=== PATIENT | female | born 1980 | race Caucasian/White ===

== ENCOUNTER 2023-09-12 13:43 | Outpatient (RCR) | payer MEDICAID, SELFPAY | END 2023-09-24 23:59 | disposition home or self-care (01) | LOC: CPTX 13:43 | PROVIDERS: PCP Chiropractor; Referring Provider Chiropractor; Visit Provider Chiropractor | DX: Z53.9 Procedure and treatment not carried out, unspecified reason (principal) ==

== ENCOUNTER 2024-12-02 09:24 | Outpatient (AMB) | payer MEDICAID, SELFPAY ==
--- NOTE | 2024-12-02 09:25 | AMB.GYNCLNOT ---
Vital Signs 12/02/24 09:31 Weight 65.374 kg Weight Measurement Method Standing Scale BP 134/89 H Blood Pressure Source Automatic Cuff Blood Pressure Location Left Upper Arm Position Sitting Respiration 14 Pulse 71 Pulse Source Monitor Temp 97.8 F Temp Source Oral Pulse Oximetry (%) 99 Oxygen Delivery Method Room Air Allergies/Home Meds Allergies & Medications Allergies albuterol Allergy (Severe, Verified 12/02/24 09:33) HEART RACES AND BLACKS OUT cefprozil Allergy (Severe, Verified 12/02/24 09:33) DEFLIN ADARSH SYNDROME cetirizine Allergy (Severe, Verified 12/02/24 09:33) THROAT CLOSES epinephrine Allergy (Severe, Verified 12/02/24 09:33) HYPOTENSION erythromycin base Allergy (Severe, Verified 12/02/24 09:33) SZ ibuprofen Allergy (Severe, Verified 12/02/24 09:33) RASH AND ITCHING ALL OVER. lidocaine Allergy (Severe, Verified 12/02/24 09:33) HYPOTENSION morphine Allergy (Severe, Verified 12/02/24 09:33) SHAKY, BLURRED VISION Sulfa (Sulfonamide Antibiotics) Allergy (Severe, Verified 12/02/24 09:33) SZ triamcinolone (From Kenalog) Allergy (Severe, Verified 12/02/24 09:33) throat closing ct contrast Allergy (Intermediate, Uncoded 12/02/24 09:33) Nausea Medication Reconciliation albuterol sulfate 90 mcg/actuation aerosol inhaler (Ventolin HFA) 2 puff inhalation PRN PRN Cough 12/29/18 [History Confirmed 12/02/24] fluticasone propionate 110 mcg/actuation HFA aerosol inhaler 1 puff inhalation BID 03/08/23 [History Confirmed 12/02/24] fluticasone propionate 50 mcg/actuation nasal spray,suspension 2 spray intranasal DAILY 03/08/23 [History Confirmed 12/02/24] loratadine 10 mg tablet 10 mg PO DAILY 03/08/23 [History Confirmed 12/02/24] pseudoephedrine HCl 30 mg tablet (Sudogest) 30 mg PO DAILY PRN Sinus Symptoms 03/08/23 [History Confirmed 12/02/24] Intake Visit Data Collection New Patient or Established: Established Patient (seen at [facility] within 3 years) Reason for Visit:: Irregular menstrual bleeding, pelvic pain, pain during sex, right ovarian pain, and liver/abdominal pain. 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 1. Little interest or pleasure in doing things: not at all 2. Feeling down, depressed, or hopeless: not at all Total score: 0 PHQ-9 3. Trouble falling or staying asleep, or sleeping too much: Not at all 4. Feeling tired or having little energy: Not at all 5. Poor appetite or overeating: Not at all 6. Feeling bad about yourself - or that you are a failure or have let yourself or your family down: Not at all 7. Trouble concentrating on things, such as reading the newspaper or watching television: Not at all 8. Moving or speaking so slowly that other people could have noticed? - Or the opposite - being so fidgety or restless that you have been moving around a lot more than usual: not at all 9. Thoughts that you would be better off or of hurting yourself in some way: Not at all Total score: 0 Source: Developed by Drs. Ismael Duke, Moraima Espinoza, Abundio Keating and colleagues, with an educational sumit from [employer]. Depression screen completed yes Social History Living Situation History Lives With: Family Housing: House Tobacco History Smoking Status: Never smoker Second Hand Smoke Exposure: Yes Alcohol History Alcohol Intake: Current Alcohol Intake Frequency: A Few Times a Week Last Drank: Days (ago) Domestic Abuse History Do You Feel Safe at Home: Yes Past Medical History Past Medical History Have you ever been diagnosed with any of the following: Neurological Problems Cerebrovascular Accident (CVA): No Transient Ischemic Attacks (TIA): No Dementia: No Alzheimer's Disease: No Parkinson's Disease: No Brain Tumor: Yes (16 mm mass) Seizures: No Migraine: Yes Cardiology Problems Congestive Heart Failure: No Hypertension: No Respiratory Problems Chronic Obstructive Pulmonary Disease (COPD): No Asthma: Yes Bronchitis: Yes Stomache/Intestinal Problems Colorectal Cancer: No Hiatal Hernia: Yes Gastroesophageal Reflux Disease: Yes Genital/Urinary Problems Renal Disease: No Reproductive Problems Breast Cancer: No Endometriosis: Yes Musculoskeletal Problems Arthritis: Yes (both hips) Osteoporosis: Yes (early onset) Degenerative Disk Disease: Yes Scoliosis: Yes Fibromyalgia: Yes Endocrine Problems Diabetes Mellitus Type 1: No Diabetes Mellitus Type 2: No Blood Problems Anemia: No Leukemia: No Psychologic Problems Anxiety: Yes Other Problems Blood Transfusions: No Blood Transfusion Reaction: No Anesthesia Reactions: No Chemotherapy: No Chicken Pox: Yes Measles: No Mumps: No Rubella ([place] Measles): No Cancer: Yes Cervical Cancer: No Lung Cancer: No Ovarian Cancer: No History of Present Illness HPI Narrative The patient presents with irregular menstrual bleeding for several months. She reports experiencing spotting almost every week or every other week, with varying characteristics including brown or red discharge, and occasionally mucoid discharge with small clots. The bleeding episodes are inconsistent, lasting for a few days before stopping and then recurring. The patient also complains of pain, particularly in the right ovary, which she describes as a stabbing sensation. She experiences pain sometimes after sexual intercourse and occasionally during intercourse. The onset of these symptoms dates back to approximately a year and a half ago, following a surgical procedure in February 2023. The patient also mentions a history of liver hemangioma and gallbladder sludging, for which she has previously consulted specialists. She reports symptoms of fullness and nausea related to these conditions. Additionally, the patient has a history of spinal issues, including scoliosis, spondylolisthesis, and stenosis, with previous recommendations for spinal surgery due to multiple [id number] areas and bulging discs. Review of Systems Review of Systems Systems Reviewed: All systems reviewed, normal except as documented Exam General Limitations: no limitations General Appearance: alert, in no apparent distress, comfortable, cooperative, healthy appearing, well developed and well groomed Head Head exam: atraumatic, normocephalic and normal inspection Neck Neck exam: Present normal inspection, full ROM and trachea midline Chest Chest inspection: Present normal inspection and symmetric chest wall rise Abdominal Abdominal exam: Present soft and normal bowel sounds Extremities Extremities exam: Present normal inspection and full ROM Back Back exam: Present normal inspection and full ROM Psych Psychiatric exam: Present normal affect and normal mood Skin Skin exam: Present warm, dry, intact and normal color Assessment & Plan Diagnosis / Problem List (1) Abnormal uterine and vaginal bleeding, unspecified: Status: Acute Plan: Patient presents with irregular menstrual bleeding for several months, characterized by frequent spotting (every week or every other week), varying in color (brown to red) and consistency (mucoid with occasional clots). The bleeding pattern is inconsistent and unpredictable. Given the patient's age and symptoms, perimenopausal changes are being considered. Family history is non-contributory as female relatives had hysterectomies. The clinician is also considering the possibility of post-surgical complications, as the patient had a procedure approximately 1.5 years ago in February 2023. - Hormone panel to check for menopausal changes - Pelvic ultrasound to evaluate uterine and ovarian structures - Follow-up appointment scheduled for December 16 at 9:30 AM to review results and discuss further management Right Ovarian Pain Patient reports right-sided ovarian pain, described as stabbing in nature. The pain is sometimes exacerbated during or after sexual intercourse. This symptom is occurring in conjunction with the abnormal uterine bleeding, suggesting a possible gynecological etiology. - Pelvic ultrasound (as mentioned above) to evaluate ovarian structures - Results to be discussed at the follow-up appointment (2) Spondylolisthesis: Status: Acute Plan: Patient has a history of significant spinal problems, including multiple [id number] areas, bulging discs, and a disc impinging on the spinal canal. Previous referral for spinal surgery was unsuccessful due to changes in provider contracts. The condition is causing mobility issues, as evidenced by the patient's previous use of a walking stick. 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 The patient's complex presentation with irregular bleeding patterns, pelvic pain, and possible early menopause symptoms necessitates a comprehensive evaluation. Given the patient's history of poor tolerance to hormones, the clinician is hesitant to initiate progesterone therapy. The differential diagnosis includes perimenopause, structural uterine abnormalities, and potential complications from the previous surgery. A hormone panel is ordered to assess for menopausal changes, and a pelvic ultrasound is planned to evaluate for any anatomical causes of the symptoms and to compare with previous imaging. The clinician also considers the patient's reported liver hemangioma and recent upper abdominal pain as potential confounding factors in the presentation. The complexity of the case is increased by the patient's multiple comorbidities, including a history of brain tumor and spinal issues, which require separate follow-up and management. Additional Assessment Preventive Medicine: Patient Counseling: Sexual Health, Contraception, and Family Planning Your sexual and reproductive health is important, and there are several steps you can take to protect yourself and make informed decisions. Safe Sex and STD Prevention: ? Condom Use: Consistent use of condoms during vaginal, anal, and oral sex reduces the risk of sexually transmitted diseases (STDs), including HIV. ? Regular Testing: Routine STD testing is important, especially if you or your partner have multiple partners. Early detection helps prevent complications. ? Open Communication: Discuss your sexual health and testing history with your partner(s) to make safer choices together. Contraceptive Options: ? Barrier Methods: Condoms (male and female) provide protection against both and STDs. ? Hormonal Methods: control pills, patches, vaginal rings, injections, and implants prevent when used consistently and correctly. ? Long-Acting Reversible Contraception (LARC): IUDs (hormonal and non-hormonal) and implants provide long-term, highly effective protection. ? Permanent Contraception: Options like tubal ligation or vasectomy are available for those who do not wish to have more children. Emergency Contraception (EC): ? Emergency contraception (e.g., Plan B or Chen) can be used after unprotected sex or contraceptive failure and is most effective when taken within 72 hours (up to 5 days for some options). ? EC does not protect against STDs, so follow up with testing if exposure is a concern. Family Planning and Pre- Health: ? If you are planning to become , begin taking folic acid 1 mg daily to reduce the risk of neural tube defects. ? Avoid teratogenic drugs (medications that can harm a developing baby) and discuss any prescription medications with your healthcare provider before . ? It is recommended to space pregnancies at least 18 months apart to support your health and reduce -related risks. Additional Plan Follow Up: 2 Weeks Office Procedures OB Clinic LOC & Office Proc's Nursing/Assessment Patient Status: Established Patient OB Clinic Nursing Assessment: Medication Reconciliation, Update PMH in EMR and Vital Signs OB Clinic Coordination of Care: Complex Care and Chronic Disease 1-5, Consent,records obtained, informed consent, Education Simp Pt/Fam, Lab and Imaging orders and Staff clarify orders Established Patient Charge Established Patient Point Assignment: 100 Established Patient Point Charge: EP Level 3 (80-115)
[2024-12-02 09:31] VITALS: BP 134/89; PULSE 71; RESP 14; TEMP 36.6; O2SAT 99
== END 2024-12-02 09:57 | disposition home or self-care (01) ==
LOC: HODSOBC 09:24
PROVIDERS: PCP Physician Assistant Medical; Referring Provider Physician Assistant Medical; Supervising Provider Obstetrics & Gynecology; Visit Provider Obstetrics & Gynecology
DX: N93.8 Other specified abnormal uterine and vaginal bleeding (principal); D18.03 Hemangioma of intra-abdominal structures
CPT/HCPCS: 99213; G0463

== ENCOUNTER → 2024-12-12 | Outpatient (CLI) | payer MEDICAID, SELFPAY ==
--- NOTE | 2024-12-12 16:30 | XR_ITS ---
Examination: Pelvic ultrasound, transabdominal, complete Technique: Transabdominal ultrasound of the pelvis performed using grayscale imaging Date and time of exam: December 12, 2024 1634 hours INDICATIONS: Onset of pelvic pain beginning 4 months ago. FINDINGS: Uterus 8.3 cm endometrial stripe 0.4 cm, no uterine mass Right ovary 2.9 cm arterial flow 22 mm 13 mm follicular cysts Duct ovary 3.4 cm arterial flow IMPRESSION: No uterine mass Small right ovarian follicular cysts
== END | disposition home or self-care (01) ==
LOC: CDIM 16:11
PROVIDERS: PCP Physician Assistant Medical; Referring Provider Obstetrics & Gynecology; Visit Provider Obstetrics & Gynecology
DX: N83.01 Follicular cyst of right ovary (principal)
CPT/HCPCS: 76856

== ENCOUNTER 2024-12-16 09:27 | Outpatient (AMB) | payer MEDICAID, SELFPAY ==
[2024-12-16 09:38] VITALS: BP 100/64; PULSE 64; RESP 14; TEMP 36.8; O2SAT 97
--- NOTE | 2024-12-16 09:38 | GYNCLNT_ITS ---
Vital Signs 12/16/24 09:38 Weight 66.224 kg Weight Measurement Method Standing Scale BP 100/64 Blood Pressure Source Automatic Cuff Blood Pressure Location Left Upper Arm Position Sitting Respiration 14 Pulse 64 Pulse Source Monitor Temp 98.2 F Temp Source Oral Pulse Oximetry (%) 97 Oxygen Delivery Method Room Air Allergies/Home Meds Allergies & Medications Allergies albuterol Allergy (Severe, Verified 12/16/24 09:41) HEART RACES AND BLACKS OUT cefprozil Allergy (Severe, Verified 12/16/24 09:41) DELFIN ADARSH SYNDROME cetirizine Allergy (Severe, Verified 12/16/24 09:41) THROAT CLOSES epinephrine Allergy (Severe, Verified 12/16/24 09:41) HYPOTENSION erythromycin base Allergy (Severe, Verified 12/16/24 09:41) SZ ibuprofen Allergy (Severe, Verified 12/16/24 09:41) RASH AND ITCHING ALL OVER. lidocaine Allergy (Severe, Verified 12/16/24 09:41) HYPOTENSION morphine Allergy (Severe, Verified 12/16/24 09:41) SHAKY, BLURRED VISION Sulfa (Sulfonamide Antibiotics) Allergy (Severe, Verified 12/16/24 09:41) SZ triamcinolone (From Kenalog) Allergy (Severe, Verified 12/16/24 09:41) throat closing ct contrast Allergy (Intermediate, Uncoded 12/16/24 09:41) Nausea Medication Reconciliation albuterol sulfate 90 mcg/actuation aerosol inhaler (Ventolin HFA) 2 puff inhalation PRN PRN Cough 12/29/18 [History Confirmed 12/16/24] fluticasone propionate 110 mcg/actuation HFA aerosol inhaler 1 puff inhalation BID 03/08/23 [History Confirmed 12/16/24] fluticasone propionate 50 mcg/actuation nasal spray,suspension 2 spray intranasal DAILY 03/08/23 [History Confirmed 12/16/24] loratadine 10 mg tablet 10 mg PO DAILY 03/08/23 [History Confirmed 12/16/24] pseudoephedrine HCl 30 mg tablet (Sudogest) 30 mg PO DAILY PRN Sinus Symptoms 03/08/23 [History Confirmed 12/16/24] Intake Visit Data Collection New Patient or Established: Established Patient (seen at [facility] within 3 years) Reason for Visit:: DISCUSS LABS AND ULTRASOUND RESULTS Seen by Clinical Staff ONLY (RN/MA): No Chemical Sales Representative Required: No Do You Feel Safe at Home: Yes Authorities Contacted: N/A PCP or OBGYN visit in last 3 months: Yes Date of Last PCP or OBGYN visit: 12/02/24 Hx Now: No Are you currently on any form of Control: No Pain Present Currently: No Pain Scale Used: Dang-Varma/Numerical Pain scale:: 0 Smoking Status Smoking Status: Never smoker 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 1. Little interest or pleasure in doing things: not at all 2. Feeling down, depressed, or hopeless: not at all Total score: 0 PHQ-9 3. Trouble falling or staying asleep, or sleeping too much: Not at all 4. Feeling tired or having little energy: Not at all 5. Poor appetite or overeating: Not at all 6. Feeling bad about yourself - or that you are a failure or have let yourself or your family down: Not at all 7. Trouble concentrating on things, such as reading the newspaper or watching television: Not at all 8. Moving or speaking so slowly that other people could have noticed? - Or the opposite - being so fidgety or restless that you have been moving around a lot more than usual: not at all 9. Thoughts that you would be better off or of hurting yourself in some way: Not at all Total score: 0 Source: Developed by Drs. Ismael Duke, Moraima Espinoza, Abundio Keating and colleagues, with an educational sumit from [employer]. Depression screen completed yes Social History Living Situation History Lives With: Family Housing: House Tobacco History Smoking Status: Never smoker Second Hand Smoke Exposure: Yes Alcohol History Alcohol Intake: Current Alcohol Intake Frequency: A Few Times a Week Domestic Abuse History Do You Feel Safe at Home: Yes Past Medical History Past Medical History Have you ever been diagnosed with any of the following: Neurological Problems Cerebrovascular Accident (CVA): No Transient Ischemic Attacks (TIA): No Dementia: No Alzheimer's Disease: No Parkinson's Disease: No Brain Tumor: Yes (16 mm mass) Seizures: No Migraine: Yes Cardiology Problems Congestive Heart Failure: No Hypertension: No Respiratory Problems Chronic Obstructive Pulmonary Disease (COPD): No Asthma: Yes Bronchitis: Yes Stomache/Intestinal Problems Colorectal Cancer: No Hiatal Hernia: Yes Gastroesophageal Reflux Disease: Yes Genital/Urinary Problems Renal Disease: No Reproductive Problems Breast Cancer: No Endometriosis: Yes Musculoskeletal Problems Arthritis: Yes (both hips) Osteoporosis: Yes (early onset) Degenerative Disk Disease: Yes Scoliosis: Yes Fibromyalgia: Yes Endocrine Problems Diabetes Mellitus Type 1: No Diabetes Mellitus Type 2: No Blood Problems Anemia: No Leukemia: No Psychologic Problems Anxiety: Yes Other Problems Blood Transfusions: No Blood Transfusion Reaction: No Anesthesia Reactions: No Chemotherapy: No Chicken Pox: Yes Measles: No Mumps: No Rubella (Georgian Measles): No Cancer: Yes Cervical Cancer: No Lung Cancer: No Ovarian Cancer: No History of Present Illness HPI Narrative The patient presents with a history of irregular bleeding. She previously underwent an ablation procedure, which has been overridden by uterine regrowth. The patient is not anemic, with a hemoglobin level of 14.9. Her LH and FSH levels are normal, indicating regular cycles without menopausal changes. Estrogen level is 126, which is appropriate for her age. An ultrasound performed on December 12 revealed a uterus measuring 8.3 centimeters with an endometrium of 0.4 cm, which is within normal limits. The right ovary showed follicular cysts, indicative of ovulation, while the left ovary appeared normal. Laboratory, Imaging, and Diagnostic Test Results - Ultrasound (December 12): - Uterus measuring 8.3 centimeters - Endometrium 0.4 cm (within normal limits) - Right ovary shows follicular cysts - Left ovary appears normal - Hemoglobin: 14.9 g/dL - LH and FSH: Normal levels - Estrogen: 126 pg/mL (normal for patient's age) Review of Systems Review of Systems Systems Reviewed: All systems reviewed, normal except as documented Exam General Limitations: no limitations General Appearance: alert, in no apparent distress, comfortable, cooperative, healthy appearing, well developed and well groomed Head Head exam: atraumatic, normocephalic and normal inspection Neck Neck exam: Present normal inspection, full ROM and trachea midline Chest Chest inspection: Present normal inspection and symmetric chest wall rise Abdominal Abdominal exam: Present soft and normal bowel sounds Extremities Extremities exam: Present normal inspection and full ROM Back Back exam: Present normal inspection and full ROM Psych Psychiatric exam: Present normal affect and normal mood Skin Skin exam: Present warm, dry, intact and normal color Assessment & Plan Diagnosis / Problem List (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 Recent ultrasound (December 12) shows uterus measuring 8.3 cm with endometrium 0.4 cm, within normal limits. Right ovary has follicular cysts indicating ovulation, left ovary normal. Hemoglobin 14.9, LH and FSH normal, indicating regular cycles without menopausal changes. Estrogen 126, normal for patient's age. Previous endometrial ablation has been overridden by uterine regrowth. - Wait 2-3 months to reassess - Repeat ultrasound in 6 months - Consider evening primrose oil for symptom management - Follow-up appointment scheduled with Dr. Sheikh on Office Procedures OB Clinic LOC & Office Proc's Nursing/Assessment Patient Status: Established Patient OB Clinic Nursing Assessment: Medication Reconciliation, Update PMH in EMR and Vital Signs OB Clinic Coordination of Care: Complex Care and Chronic Disease 1-5, Consent,records obtained, informed consent, Education Simp Pt/Fam, Results/Orders obtained and Staff clarify orders Established Patient Charge Established Patient Point Assignment: 90 Established Patient Point Charge: EP Level 3 (80-115)
== END 2024-12-16 09:47 | disposition home or self-care (01) ==
LOC: HODSOBC 09:27
PROVIDERS: PCP Physician Assistant Medical; Referring Provider Physician Assistant Medical; Supervising Provider Obstetrics & Gynecology; Visit Provider Obstetrics & Gynecology
DX: N93.8 Other specified abnormal uterine and vaginal bleeding (principal); N99.85 Post endometrial ablation syndrome
CPT/HCPCS: 99213; G0463